=== PATIENT | male | born 1990 | race Caucasian/White ===

== ENCOUNTER 2019-11-13 05:16 | Emergency (ER) | payer MEDICAID ==
[~2019-11-13] VITALS: Ht 187.9 cm; Wt 72.2 kg
[~2019-11-13 05:16] MED LIST: MOTRIN800 MG PO; NAPROSYN500 MG PO; ULTRAM50 MG PO
== END 2019-11-13 06:37 | disposition left against medical advice (07) ==
LOC: ED 05:16
DX: T65.91XA Toxic effect of unspecified substance, accidental (unintentional), initial encounter (principal); F17.200 Nicotine dependence, unspecified, uncomplicated; Y92.89 Other specified places as the place of occurrence of the external cause

== ENCOUNTER 2020-03-10 20:41 | Emergency (ER) | payer OTHER ==
[~2020-03-10] VITALS: Ht 172.7 cm; Wt 61.9 kg
== END 2020-03-11 00:33 | disposition home or self-care (01) ==
LOC: ED 20:41
DX: F19.129 Other psychoactive substance abuse with intoxication, unspecified (principal)